=== PATIENT | female | born 1970 | race African-American/Black ===

== ENCOUNTER 2022-12-22 02:03 | Emergency (ER) | payer BC ==
[~2022-12-22] VITALS: Ht 172.7 cm; Wt 94.0 kg
[~2022-12-22 02:03] MED LIST: ALEVE220 MG OR; FIORINA1 PO; FLEXERIL OR; IBUPROFEN200 M1 OR; NO MEDS; ULTRAM50 M1 PO; VITAMINS
[2022-12-22 03:05] LABS: URINE COLOR Red
[2022-12-22 03:06] LABS: URINE BILIRUBIN - DIPSTICK Negative (NEGATIVE); URINE GLUCOSE - DIPSTICK Negative (NEGATIVE); URINE KETONE Negative (NEGATIVE)
[2022-12-22 03:07] LABS: URINE BLOOD DIPSTICK Large (NEGATIVE); URINE PROTEIN - DIPSTICK 30 mg/dL (NEG-TRACE)
[2022-12-22 03:08] LABS: URINE LEUK ESTERASE Moderate (NEGATIVE); URINE NITRITE - DIPSTICK Negative (Negative); URINE UROBILINOGEN - DIPSTICK 0.2 E.U./dL (0.2)
[2022-12-22 03:09] LABS: URINE BACTERIA MODERATE hpf; URINE RBC >100 RBC/hpf (0-5); URINE SQUAMOUS EPITHELIAL CELL FEW EPI/hpf (0-FEW)
[2022-12-22] MEDS ORDERED: PYRIDIUM200 MG PO ×2 (03:18→04:28)
[2022-12-22] MEDS ORDERED: CIPROFLOXACIN250 MG PO ×2 (03:18→04:28)
[2022-12-22 03:23] VITALS: BP 153/88
== END 2022-12-22 04:09 | disposition home or self-care (01) | DRG 690 ==
LOC: ED 02:03
PROVIDERS: Family Medicine
DX: N30.00 Acute cystitis without hematuria (principal); B96.20 Unspecified Escherichia coli [E. coli] as the cause of diseases classified elsewhere

== ENCOUNTER 2023-12-15 03:21 | Emergency (ER) | payer BC ==
[~2023-12-15] VITALS: Ht 172.7 cm; Wt 69.0 kg
[~2023-12-15 03:21] MED LIST changes: +CIPROFLOXACIN250 MG PO; +PYRIDIUM200 MG PO
[2023-12-15 03:29] VITALS: BP 142/72
[2023-12-15] MEDS ORDERED: KETOROLAC TROMETHAMINE 30 MG/ML SDV IV ONE (03:40)
[2023-12-15] MEDS ORDERED: ACETAMINOPHEN 500 MG TAB PO ONE (03:40)
[2023-12-15] MEDS ORDERED: traMADol HCL 50 MG/TAB PO ONE (03:40)
[2023-12-15] MEDS ORDERED: SODIUM CHLORIDE 0.9% 1,000 ML IV STA (03:40)
[2023-12-15] MEDS ORDERED: MELOXICAM7.5 MG PO (03:41)
[2023-12-15 04:04] VITALS: BP 145/83
[2023-12-15 04:22] LABS: BASO% 1.1 % (0-3); EOS% 1.3 % (0-8); HEMATOCRIT 40.8 % (37.0-47.0); HEMOGLOBIN 13.3 g/dl (12.0-16.0); IMMATURE GRANULOCYTES 0.4 % (0.0-5.0); LYMPH% 33.8 % (15-41); MEAN CELL VOLUME 93.2 fL CALC (80.0-100.0); MEAN CORPUSCULAR HGB 30.4 pG CALC (26.0-32.0); MEAN CORPUSCULAR HGB CONC 32.6 g/dL CAL (32.0-36.0); MONO% 7.2 % (2-13); NEUT# 2.65 thou/uL (2.00-7.15); NEUT% 56.2 % (42-76); RED BLOOD COUNT 4.38 mill/uL (4.20-5.60)
[2023-12-15 04:22] LABS: URINE BILIRUBIN - DIPSTICK Negative (NEGATIVE); URINE BLOOD DIPSTICK Small (NEGATIVE); URINE GLUCOSE - DIPSTICK Negative (NEGATIVE); URINE KETONE Negative (NEGATIVE); URINE NITRITE - DIPSTICK Negative (Negative); URINE PROTEIN - DIPSTICK Negative (NEG-TRACE); URINE UROBILINOGEN - DIPSTICK 0.2 E.U./dL (0.2)
[2023-12-15 04:23] LABS: URINE COLOR Yellow; URINE LEUK ESTERASE Negative (NEGATIVE)
[2023-12-15 04:27] LABS: URINE BACTERIA FEW hpf; URINE EPITHELIAL CELLS FEW EPI/hpf (0-FEW); URINE WBC 0-2 WBC/hpf (0-5)
[2023-12-15 04:28] LABS: ALBUMIN 4.3 g/dL (3.2-5.0); BILIRUBIN, TOTAL 0.6 mg/dL (0.02-1.3); CREATININE 0.8 mg/dL (0.5-1.0); POTASSIUM 4.1 mmol/l (3.5-5.1)
[2023-12-15 04:30] VITALS: BP 133/88
[2023-12-15 05:01] VITALS: BP 151/90
[2023-12-15] MEDS ORDERED: PERCOGESI1 PO (06:14)
[2023-12-15] MEDS ORDERED: MIRALAX17 GM PO (06:14)
[2023-12-15] MEDS ORDERED: VOLTAREN - GENE75 MG PO (06:14)
[2023-12-15] MEDS ORDERED: CYCLOBENZAPRINE HCL 5 MG TAB PO ONE (06:15)
[2023-12-15] MEDS ORDERED: HYDROcodone 5 MG/Acetaminophen 325 MG/COMBO PO ONE (06:15)
[2023-12-15] MEDS ORDERED: DICLOFENAC SODIUM 75 MG/TAB PO ONE (06:15)
[2023-12-15] MEDS ORDERED: MAGNESIUM CITRATE 296 ML/BTL PO ONE (06:15)
[2023-12-15 06:31] VITALS: BP 152/92
[2023-12-15 06:35] VITALS: BP 152/92
== END 2023-12-15 06:35 | disposition home or self-care (01) | DRG 392 ==
LOC: ED 03:21
PROVIDERS: Family Medicine
DX: K59.00 Constipation, unspecified (principal); S39.012A Strain of muscle, fascia and tendon of lower back, initial encounter; X58.XXXA Exposure to other specified factors, initial encounter
CPT/HCPCS: Q9967